=== PATIENT | female | born 1950 | race Asian ===

== ENCOUNTER 2018-08-04 12:56 | Outpatient (CLI) | payer OTHER ==
[2018-08-04 13:22] LABS: PLATELET COUNT 350 K/uL (152-353)
[2018-08-04 13:42] LABS: POTASSIUM 3.1 mmol/L (3.6-5.2)
== END 2018-08-04 20:24 | disposition home or self-care (01) ==
LOC: LABW 12:56
PROVIDERS: Nurse Practitioner Family
DX: D50.9 Iron deficiency anemia, unspecified (principal)
CPT/HCPCS: 36415; 80053; 82728; 83540; 83550; 85027